=== PATIENT | male | born 1965 | race African-American/Black ===

== ENCOUNTER 2017-03-05 11:13 | Emergency (ER) | payer OTHER ==
[~2017-03-05] VITALS: Ht 180.3 cm; Wt 85.0 kg
[2017-03-05] MEDS ORDERED: HYDR-2510 PO (11:26)
[2017-03-05] MEDS ORDERED: KETOROLAC 30MG/ML VIAL IV STA (12:02)
[2017-03-05 12:21] LABS: BASOPHILS % 2.2 % (0.0-2.0); EOSINOPHILS % 4.6 % (0.0-5.0); HEMOGLOBIN. 14.6 g/dL (14.0-18.0); LYMPHOCYTES % 37.7 % (20.0-50.0); MEAN CORPUSCULAR HEMOGLOBIN 28.8 pg (28.0-32.0); MEAN CORPUSCULAR HGB CONC 33.2 g/dL (31.0-37.0); MEAN CORPUSCULAR VOLUME 86.7 fL (80.0-94.0); MEAN PLATELET VOLUME 7.9 fl (7.4-10.4); MONOCYTES % 11.4 % (2.0-8.0); NEUTROPHILS % 44.1 % (40.0-76.0); PLATELET 223 x1000/uL (130-400); RED BLOOD CELL COUNT 5.08 mill/uL (4.7-6.1); RED CELL DISTRIBUTION WIDTH 13.6 % (11.6-14.6); WHITE BLOOD COUNT 4.6 x1000/uL (4.5-11.0)
[2017-03-05 12:27] LABS: CHLORIDE 103 mEq/L (98-107)
[2017-03-05 12:32] LABS: ALBUMIN 3.9 g/dL (3.4-5.0); ANION GAP 12; CALCIUM 9.3 mg/dL (8.5-10.1); CARBON DIOXIDE 30 mEq/L (21-32); INDEX HEMOLYSI 1 (1-3); INDEX ICTERIC 1 (1-4); INDEX LIPEMIC 1 (1-3); LIPASE 228 IU/L (73-393); UREA NITROGEN BLOOD 12 mg/dL (7-21)
[2017-03-05 12:38] LABS: ALANINE AMINOTRANSFERASE 21 IU/L (13-61); TROPONIN I < 0.02 ng/mL (0.00-0.04); eGFR > 60 mL/min (>60)
[2017-03-05 15:56] VITALS: BP 143/88
== END 2017-03-05 15:58 | disposition home or self-care (01) ==
LOC: ER 12:34
DX: R07.89 Other chest pain (principal); I10 Essential (primary) hypertension; F12.10 Cannabis abuse, uncomplicated; F17.200 Nicotine dependence, unspecified, uncomplicated
CPT/HCPCS: 36415; 71010; 80053; 83690; 84484; 85025; 93005; 96374; 99285; J1885; Z7610

== ENCOUNTER 2017-09-21 03:33 | Emergency (ER) | payer OTHER ==
[~2017-09-21] VITALS: Ht 180.3 cm; Wt 81.0 kg
[~2017-09-21 03:33] MED LIST: HYDR-2510 PO
[2017-09-21 04:24] VITALS: BP 194/141
== END 2017-09-21 05:30 | disposition left against medical advice (07) ==
LOC: ER 05:27
DX: Z04.1 Encounter for examination and observation following transport accident (principal); Z53.21 Procedure and treatment not carried out due to patient leaving prior to being seen by health care provider

== ENCOUNTER 2021-10-04 11:01 | Emergency (ER) | payer MEDICAID, OTHER ==
[~2021-10-04] VITALS: Ht 170.2 cm; Wt 85.0 kg
[~2021-10-04 11:01] MED LIST changes: -HYDR-2510 PO; +HYDR50TA PO
[2021-10-04] MEDS ORDERED: LABETALOL 5MG/ML SYR 20 MG/4 ML SYRINGE IV ONE (11:45)
[2021-10-04] MEDS ORDERED: GABAPENTIN 100MG CAPSULE PO NR (12:15)
[2021-10-04 12:21] LABS: CLARITY URINE CLEAR (CLEAR); COLOR URINE YELLOW (YELLOW); KETONES URINE TRACE (NEGATIVE); LEUKOCYTE ESTERASE URINE NEGATIVE (NEGATIVE); NITRITE URINE NEGATIVE (NEGATIVE); OCCULT BLOOD URINE NEGATIVE (NEGATIVE); PH URINE 6.5 (4.5-8.0); PROTEIN URINE TRACE (NEGATIVE); SPECIFIC GRAVITY URINE 1.025 (1.005-1.030); UROBILINOGEN URINE 0.2 E.U./dL (0.2-1.0)
[2021-10-04] MEDS ORDERED: HYDROCHLOROTHIAZIDE 25MG TABLET PO NR (12:30)
[2021-10-04 12:48] LABS: *AMPHETAMINES SCREEN URINE NEGATIVE (NEGATIVE)
[2021-10-04 12:49] LABS: *BARBITURATES SCREEN URINE NEGATIVE (NEGATIVE); *BENZODIAZEPINES SCREEN URINE NEGATIVE (NEGATIVE); *COCAINE SCREEN URINE NEGATIVE (NEGATIVE); CANNABINOID URINE SCREEN PRESUMTIVE POSITIVE (NEGATIVE); OPIATES URINE SCREEN NEGATIVE (NEGATIVE); PHENCYCLIDINE URINE SCREEN NEGATIVE (NEGATIVE)
[2021-10-04 12:50] LABS: METHADONE URINE SCREEN NEGATIVE (NEGATIVE)
[2021-10-04 12:55] LABS: BASOPHILS % 2.2 % (0.0-2.0); EOSINOPHILS % 4.3 % (0.0-5.0); HEMOGLOBIN. 15.6 g/dL (14.0-18.0); LYMPHOCYTES % 40.7 % (20.0-50.0); MEAN CORPUSCULAR HEMOGLOBIN 29.9 pg (28.0-32.0); MEAN CORPUSCULAR VOLUME 89.9 fL (80.0-94.0); MEAN PLATELET VOLUME 8.4 fl (7.4-10.4); MONOCYTES % 11.8 % (2.0-8.0); PLATELET 243 x1000/uL (130-400); RED BLOOD CELL COUNT 5.23 mill/uL (4.7-6.1); RED CELL DISTRIBUTION WIDTH 13.9 % (11.6-14.6)
[2021-10-04 13:02] LABS: CHLORIDE 106 mEq/L (98-107)
[2021-10-04 15:25] VITALS: BP 185/116
== END 2021-10-04 15:32 | disposition home or self-care (01) ==
LOC: ER 11:01
DX: I10 Essential (primary) hypertension (principal); M79.604 Pain in right leg
CPT/HCPCS: 36415; 71045; 74018; 80053; 80305; 81003; 83880; 84484; 85025; 93005; 99285

== ENCOUNTER 2023-01-29 15:14 | Emergency (ER) | payer MEDICAID ==
[~2023-01-29] VITALS: Ht 180.3 cm; Wt 75.0 kg
[2023-01-29 15:25] VITALS: BP 155/116
[2023-01-29] MEDS ORDERED: IBUPROFEN 400MG TABLET PO ONE (18:30)
[2023-01-29] MEDS ORDERED: IBUP-2028 MT (18:48)
== END 2023-01-29 18:59 | disposition home or self-care (01) ==
LOC: ER 15:27
DX: S93.491A Sprain of other ligament of right ankle, initial encounter (principal); X50.1XXA Overexertion from prolonged static or awkward postures, initial encounter; I10 Essential (primary) hypertension; Y93.01 Activity, walking, marching and hiking; Y92.89 Other specified places as the place of occurrence of the external cause; Z87.81 Personal history of (healed) traumatic fracture
CPT/HCPCS: 73610; 73630; 99284

== ENCOUNTER 2023-10-07 22:30 | Emergency (ER) | payer MEDICAID, OTHER ==
[~2023-10-07] VITALS: Ht 180.3 cm; Wt 82.0 kg
[~2023-10-07 22:30] MED LIST changes: +IBUP-2028 MT
[2023-10-07] MEDS ORDERED: MAGNESIUM/ALUMINUM HYDROXIDE/SIMETHICONE 30ML UDC PO STA (23:08)
[2023-10-07] MEDS ORDERED: ONDANSETRON HCL 4MG/2ML INJ IV STA (23:08)
[2023-10-07 23:10] VITALS: O2SAT 100
[2023-10-07] MEDS ORDERED: SODIUM CHLORIDE 0.9% 1,000 ML IV ONE (23:15)
[2023-10-07 23:59] LABS: BASOPHILS % 1.6 % (0.0-2.0); EOSINOPHILS % 1.1 % (0.0-5.0); HEMATOCRIT. 42.5 % (42.0-52.0); HEMOGLOBIN. 14.2 g/dL (14.0-18.0); LYMPHOCYTES % 29.2 % (20.0-50.0); MEAN CORPUSCULAR HEMOGLOBIN 30.5 pg (28.0-32.0); MEAN CORPUSCULAR HGB CONC 33.5 g/dL (31.0-37.0); MEAN CORPUSCULAR VOLUME 91.1 fL (80.0-94.0); MEAN PLATELET VOLUME 7.9 fl (7.4-10.4); NEUTROPHILS % 57.1 % (40.0-76.0); PLATELET 261 x1000/uL (130-400); RED BLOOD CELL COUNT 4.66 mill/uL (4.7-6.1); RED CELL DISTRIBUTION WIDTH 13.6 % (11.6-14.6); WHITE BLOOD COUNT 4.3 x1000/uL (4.5-11.0)
[2023-10-08 00:01] LABS: INR 1.1; PROTHROMBIN TIME 11.3 sec (9.6-11.0)
[2023-10-08 00:25] LABS: ALANINE AMINOTRANSFERASE 14 IU/L (10-49); ALBUMIN 3.9 g/dL (3.2-4.8); ASPARTATE AMINOTRANSFERASE 23 IU/L (<34); BILIRUBIN TOTAL 1.8 mg/dL (0.1-1.0); CARBON DIOXIDE 26 mEq/L (21-32); CHLORIDE 104 mEq/L (98-107); CREATININE 1.3 mg/dL (0.6-1.3); GLUCOSE 185 mg/dL (70-105); PROTEIN TOTAL 6.7 g/dL (6.0-8.3); SODIUM 138 mEq/L (136-145); UREA NITROGEN BLOOD 12 mg/dL (9-23)
[2023-10-08 00:43] LABS: ETHANOL BLOOD < 10 mg/dL (<10)
[2023-10-08 01:24] LABS: TROPONIN I HIGH SENSITIVITY 10 ng/L (3.0-53)
[2023-10-08] MEDS ORDERED: POTA-204 MT (01:58)
[2023-10-08] MEDS ORDERED: PROT40 MT (01:58)
[2023-10-08 02:25] VITALS: BP 177/100; PULSE 79; RESP 20; TEMP 98.3
== END 2023-10-08 02:26 | disposition home or self-care (01) ==
LOC: ER 22:30
DX: R10.13 Epigastric pain (principal); E87.6 Hypokalemia; I10 Essential (primary) hypertension
CPT/HCPCS: 80053; 80320; 83690; 85025; 85610; 36415 ×2; 76705; 93005; 96361; 96374; 99285; 84484; J2405; J7030; G0480

== ENCOUNTER 2023-10-19 18:42 | Emergency (ER) | payer OTHER ==
[~2023-10-19] VITALS: Ht 180.3 cm; Wt 82.0 kg
[~2023-10-19 18:42] MED LIST changes: +POTA-204 MT; +PROT40 MT
[2023-10-19 19:21] VITALS: O2SAT 99
[2023-10-19 21:27] LABS: HEMATOCRIT. 45.2 % (42.0-52.0); HEMOGLOBIN. 15.2 g/dL (14.0-18.0); MEAN CORPUSCULAR HEMOGLOBIN 29.8 pg (28.0-32.0); MEAN CORPUSCULAR HGB CONC 33.6 g/dL (31.0-37.0); MEAN CORPUSCULAR VOLUME 88.8 fL (80.0-94.0); MEAN PLATELET VOLUME 7.8 fl (7.4-10.4); PLATELET 230 x1000/uL (130-400); RED BLOOD CELL COUNT 5.09 mill/uL (4.7-6.1); RED CELL DISTRIBUTION WIDTH 13.7 % (11.6-14.6); WHITE BLOOD COUNT 3.4 x1000/uL (4.5-11.0)
[2023-10-19 21:29] LABS: DIFFERENTIAL COMMENT 1
[2023-10-19 21:43] LABS: ALANINE AMINOTRANSFERASE 16 IU/L (10-49); ALBUMIN 4.4 g/dL (3.2-4.8); ASPARTATE AMINOTRANSFERASE 32 IU/L (<34); CALCIUM 9.2 mg/dL (8.7-10.4); CARBON DIOXIDE 25 mEq/L (21-32); CHLORIDE 104 mEq/L (98-107); CREATININE 1.1 mg/dL (0.6-1.3); GLUCOSE 101 mg/dL (70-105); POTASSIUM 3.3 mEq/L (3.5-5.1); PROTEIN TOTAL 7.6 g/dL (6.0-8.3); SODIUM 139 mEq/L (136-145); TROPONIN I HIGH SENSITIVITY 12 ng/L (3.0-53); UREA NITROGEN BLOOD 16 mg/dL (9-23)
[2023-10-19 21:49] LABS: PLATELET ESTIMATE NORMAL
[2023-10-20 02:24] LABS: CLARITY URINE CLEAR (CLEAR); COLOR URINE YELLOW (YELLOW); GLUCOSE URINE NEGATIVE (NEGATIVE); KETONES URINE TRACE (NEGATIVE); LEUKOCYTE ESTERASE URINE NEGATIVE (NEGATIVE); NITRITE URINE NEGATIVE (NEGATIVE); OCCULT BLOOD URINE TRACE (NEGATIVE); PROTEIN URINE 2+ (NEGATIVE); SPECIFIC GRAVITY URINE 1.035 (1.005-1.030)
[2023-10-20 02:26] LABS: BACTERIA URINE NONE SEEN; RBC URINE 0-2 /hpf (0-2); SQUAMOUS EPITHELIAL CELL URINE NONE SEEN /lpf (RARE/1+); YEAST URINE NONE SEEN
[2023-10-20] MEDS ORDERED: FAMOTIDINE 20MG TABLET PO ONE (04:15)
[2023-10-20] MEDS ORDERED: ONDANSETRON 4MG ODT PO ONE (04:15)
[2023-10-20] MEDS ORDERED: MAGNESIUM/ALUMINUM HYDROXIDE/SIMETHICONE 30ML UDC PO ONE (04:15)
[2023-10-20] MEDS ORDERED: POTASSIUM CHLORIDE 20MEQ TABLET SR PO ONE (04:15)
[2023-10-20 05:29] LABS: WBC URINE 0-2 /hpf (0-2)
[2023-10-20] MEDS ORDERED: FAMO40TA70 MT (05:38)
[2023-10-20 06:21] VITALS: BP 150/117; PULSE 87; RESP 20; TEMP 97.8
== END 2023-10-20 06:55 | disposition home or self-care (01) ==
LOC: ER 18:42
DX: I10 Essential (primary) hypertension (principal); R10.9 Unspecified abdominal pain
CPT/HCPCS: 99285; 71045; 80053; 85025; 84484; 36415; 93005; 74176; 81003; Q0162